=== PATIENT | female | born 1960 | race Asian ===

== ENCOUNTER 2017-10-20 17:15 | Emergency (ER) | payer MEDICAID ==
--- NOTE | 2017-10-20 17:43 | ED Physician Chart ---
ED Chief Complaint/HPI - Patient Information Date Seen:: 10/20/17 Time Seen:: 17:20 Chief Complaint:: Dizziness History of Present Illness:: onset x 3 days of dizziness; no report of trauma, H/As, S/T, neck pain, C/P, SOB , visual or gait changes, Abds. Pain, A/N/V/D/c, fever, chills, or urinary s/s Allergies:: Allergies Allergy/AdvReac Type Severity Reaction Status Date / Time No Known Allergies Allergy Verified 10/20/17 17:29 Historian:: Patient, Family Member Review:: Nurse's Note Reviewed <Harsha Cordova - Last Filed: 10/20/17 18:53> - Patient Information Allergies:: Allergies Allergy/AdvReac Type Severity Reaction Status Date / Time No Known Allergies Allergy Verified 10/20/17 17:29 Vitals:: Vital Signs - 8 hr 10/20/17 10/20/17 10/20/17 17:30 17:55 17:56 Temp 97.8 F HR 86 77 77 RR 16 BP 218/170 240/117 O2 Sat % 99 <Chidi Yee - Last Filed: 10/20/17 20:34> ED Review of Systems - Review of Systems General/Constitutional: No fever, No chills, No weight loss, No weakness, No diaphoresis, No edema, No loss of appetite Skin: No skin lesions, No rash, No bruising Head: No headache, No light-headedness Eyes: No loss of vision, No pain, No diplopia ENT: No earache, No nasal drainage, No sore throat, No tinnitus Neck: No neck pain, No swelling, No thyromegaly, No stiffness, No mass noted Cardio Vascular: No chest pain, No palpitations, No PND, No orthopnea, No edema Pulmonary: No SOB, No cough, No sputum, No wheezing GI: No nausea, No vomiting, No diarrhea, No pain, No melena, No hematochezia, No constipation, No hematemesis G/U: No dysuria, No frequency, No hematuria, No nacturia Office Communication Professor: No vaginal discharge, No abnormal vaginal bleed, No contraction Musculoskeletal: No bone or joint pain, No back pain, No muscle pain Endocrine: No polyuria, No polydipsia Psychiatric: No prior psych history, No depression, No anxiety, No suicidal ideation, No homicidal ideation, No auditory hallucination, No visual hallucination Hematopoietic: No bruising, No lymphadenopathy Allergic/Immuno: No urticaria, No angioedema Neurological: No syncope, No focal symptoms, No weakness, No paresthesia, No headache, No seizure, Dizziness, No confusion, Vertigo <TashaHarsha - Last Filed: 10/20/17 18:53> ED Past Medical History - Past Medical History Obtainable: Yes Past Medical History: HTN, DM, Dyslipidemia Family History: Diabetes Melitus, HTN Social History: Non Smoker, No Alcohol, No Drug Use, Surgical History: None Psychiatricy History: None Medication: Reviewed <Harsha Cordova - Last Filed: 10/20/17 18:53> Family Medical History - Family Member Mother History Unknown: Yes <Chidi Yee - Last Filed: 10/20/17 20:34> ED Physical Exam - Physical Examination General/Constitutional: Awake, Well-developed, well-nourished, Alert, No distress, GCS 15, Non-toxic appearing, Ambulatory Head: Atraumatic Eyes: Lids, conjuctiva normal, PERRL, EOMI Skin: Nl inspection, No rash, No skin lesions, No ecchymosis, Well hydrated, No lymphadenopathy ENMT: External ears, nose nl, TM canals nl, Nasal exam nl, Lips, teeth, gums nl , Oropharynx nl, Tonsils nl Neck: Nontender, Full ROM w/o pain, No JVD, No nuchal rigidity, No bruit, No mass, No stridor Respiratory: Nl effort/Exclusion, Clear to Auscultation, No Wheeze/Rhonchi/Rales Cardio Vascular: RRR, No murmur, gallop, rubs, NL S1 S2, Carotid/Femoral/Distal pulses equal bilaterally GI: No tenderness/rebounding/guarding, No organomegaly, No hernia, Normal BS's, Nondistended, No mass/bruits, No McBurney tenderness : No CVA tenderness Extremities: No tenderness or effusion, Full ROM, normal strength in all extremities, No edema, Normal digits & nails Neuro/Psych: Alert/oriented, DTR's symmetric, Normal sensory exam, Normal motor strength, Judgement/insight normal, Mood normal, Normal gait, No focal deficits Misc: Normal back, No paraspinal tenderness <Harsha Cordova - Last Filed: 10/20/17 18:53> ED Labs/Radiology/EKG Results - Lab Results Comments:: Na+: 135; Glucose: 176 - EKG Interpretations EKG Time:: 17:52 Rate & Rhythm: 77; NSR Comments:: non-specific st-t changes <Harsha Cordova - Last Filed: 10/20/17 18:53> - Lab Results Results: Laboratory Tests 10/20/17 10/20/17 10/20/17 18:00 18:00 18:00 WBC 8.3 RBC 5.22 H Hgb 15.1 Hct 45.3 MCV 86.8 MCH 28.9 MCHC Differential 33.3 RDW 12.8 Plt Count 310 MPV 8.1 Neutrophils % 53.7 Lymphocytes % 38.4 Monocytes % 6.1 Eosinophils % 1.3 Basophils % 0.5 PT 9.9 INR 0.95 Sodium 135 L Potassium 3.8 Chloride 102 Carbon Dioxide 25.8 Anion Gap 11.0 BUN 18 Creatinine 0.8 Est GFR ( Amer) > 60.0 Est GFR (Non-Af Amer) > 60.0 BUN/Creatinine Ratio 22.5 Glucose 276 H Calcium 9.6 Total Bilirubin 0.6 AST 13 ALT 9 Alkaline Phosphatase 91 Creatine Kinase 49 Troponin I B-Natriuretic Peptide Total Protein 7.7 Albumin 4.3 Globulin 3.4 Albumin/Globulin Ratio 1.3 Triglycerides 209 H Cholesterol 309 H LDL Cholesterol Direct 210 H HDL Cholesterol 57 Serum , Qual 10/20/17 10/20/17 10/20/17 18:00 18:00 18:00 WBC RBC Hgb Hct MCV MCH MCHC Differential RDW Plt Count MPV Neutrophils % Lymphocytes % Monocytes % Eosinophils % Basophils % PT INR Sodium Potassium Chloride Carbon Dioxide Anion Gap BUN Creatinine Est GFR ( Amer) Est GFR (Non-Af Amer) BUN/Creatinine Ratio Glucose Calcium Total Bilirubin AST ALT Alkaline Phosphatase Creatine Kinase Troponin I 0.01 B-Natriuretic Peptide 79.7 Total Protein Albumin Globulin Albumin/Globulin Ratio Triglycerides Cholesterol LDL Cholesterol Direct HDL Cholesterol Serum , Qual NEGATIVE <Chidi Yee - Last Filed: 10/20/17 20:34> ED Assessment - Assessment General Assessment: Patient went to Dr. Gan's office and her blood pressure was 230 systolic. So she was directed to come to the emergency room by Dr. Gan. Patient states she feels normal. She denies headache, dizziness, chest pain, shortness of breath. Past medical history: Patient has a history of hypertension and diabetes. She does not smoke cigarettes or drink alcohol. She's had one section. Patient's well-developed well-nourished in no acute distress. Eyes ears nose and throat: Normal except for poor dental hygiene with 3 out of 4 gum retraction. Neck supple. Chest clear symmetrical breath sounds Heart regular rhythm no murmur or extra sound. Abdomen bowel sounds present; abdomen is soft, nontender, no organomegaly. Extremities no edema. Neurological patient normally alert; no focal neurological deficit. Assessment : Patient appears to have asymptomatic hypertension. I talked to Dr. Verdugo and he felt the patient should be discharged with a prescription for Catapres to take 0.1 mg when necessary for a systolic blood pressure of 160 or above. Patient also to be prescribed lisinopril 40 mg a day #100 to take one daily. This is the high blood pressure medicine that the patient is currently on and she ran out of. Diagnosis is asymptomatic hypertension. <Chidi Yee - Last Filed: 10/20/17 20:34> ED Septic Shock - . Is Septic Shock (SBP<90, OR Lactate>4 mmol\L) present?: No <Harsha Cordova - Last Filed: 10/20/17 18:53> - <6hrs of presentation: Vital Signs: Vital Signs - 8 hr 10/20/17 10/20/17 10/20/17 17:30 17:55 17:56 Temp 97.8 F HR 86 77 77 RR 16 BP 218/170 240/117 O2 Sat % 99 <Chidi Yee - Last Filed: 10/20/17 20:34> ED Reassessment (Disposition) - Reassessment Reassessment Condition:: Improved - Diagnosis Diagnosis:: Hypertension; Hyponatremia; Hyperglycemia; Uncontrolled Hypertension; DM <Harsha Cordova - Last Filed: 10/20/17 18:53>
[2017-10-20] MEDS ORDERED: NITROGLYCERIN OINT 2% 1 INCH PACKET TP STA (17:46)
[2017-10-20] MEDS ORDERED: NITROGLYCERIN OINT 2% 1 INCH PACKET TP ONE (17:53)
[2017-10-20 18:13] LABS: % BASOPHILS 0.5 % (0.0-2.0); % EOSINOPHILS 1.3 % (0.0-5.0); % LYMPHOCYTES 38.4 % (20.0-50.0); % MONOCYTES 6.1 % (2.0-10.0); % NEUTROPHILS 53.7 % (40.0-80.0); EOSINOPHILE ABSOLUTE 0.1 Th/cmm (0.1-0.4); HEMATOCRIT 45.3 % (41.0-60); HEMOGLOBIN 15.1 gm/dL (12-16); LYMPHOCYTE ABSOLUTE 3.2 Th/cmm (1.5-3.0); MEAN CELL VOLUME 86.8 fl (81-100); MEAN CORPUSCULAR HEMOGLOBIN 28.9 pg (27.0-31.0); MEAN CORPUSCULAR HGB CONC 33.3 pg (28.0-36.0); MEAN PLATELET VOLUME 8.1 fl; MONOCYTE ABSOLUTE 0.5 Th/cmm (0.3-1.0); NEUTROPHILE ABSOLUTE 4.5 Th/cmm (1.8-8.0); PLATELET COUNT 310 Th/cmm (150-400); RED BLOOD COUNT 5.22 Mil/cmm (3.80-5.10); RED CELL DISTRIBUTION WIDTH 12.8 % (11.5-20.0); WHITE BLOOD COUNT 8.3 Th/cmm (4.8-10.8)
[2017-10-20 18:25] LABS: INR 0.95 (0.5-1.4); PROTHROMBIN TIME (TEST) 9.9 SECONDS (9.5-11.5)
[2017-10-20 18:31] LABS: ALB/GLOB RATIO 1.3 (1.0-1.8); ALBUMIN 4.3 gm/dL (3.7-5.3); ALKALINE PHOSPHATASE 91 U/L (34-104); BILIRUBIN,TOTAL 0.6 mg/dL (0.3-1.0); BUN - UREA NITROGEN 18 mg/dL (7-25); CALCIUM SERUM 9.6 mg/dL (8.6-10.3); CARBON DIOXIDE 25.8 mEq/L (21.0-31.0); CHLORIDE 102 mEq/L (98-107); CHOLESTEROL 309 mg/dL (<200); CREATININE - SERUM 0.8 mg/dL (0.6-1.2); CREATININE KINASE 49 U/L (30-223); GFR AFRICAN-AMERICAN > 60.0 ml/min (>90); GFR NON AFRICAN-AMERICAN > 60.0 ml/min; GLUCOSE 276 mg/dL (70-105); HDL -HIGH DENSITY LIPOPROTEIN 57 mg/dL (23-92); POTASSIUM SERUM 3.8 mEq/L (3.5-5.1); SGOT 13 U/L (13-39); SGPT/ALT 9 U/L (7-52); SODIUM SERUM 135 mEq/L (136-145); TOTAL PROTEIN,SERUM 7.7 gm/dL (6.0-8.3); TRIGLYCERIDES 209 mg/dL (<150)
[2017-10-20 21:34] LABS: A1C % 11.2 % (4.0-6.0)
--- NOTE | 2017-10-21 08:12 | Diagnostic Imaging Report ---
Portable chest x-ray HISTORY: Hypertension. The heart size is normal. No focal pulmonary processes. No hilar or mediastinal abnormalities. IMPRESSION: No acute abnormalities
== END 2017-10-20 20:55 | disposition home or self-care (01) ==
LOC: ER 17:15
DX: I10 Essential (primary) hypertension (principal); E11.65 Type 2 diabetes mellitus with hyperglycemia; E87.1 Hypo-osmolality and hyponatremia; E78.5 Hyperlipidemia, unspecified; Z98.890 Other specified postprocedural states
CPT/HCPCS: 36415-UA; 71045-TC; 80053-TC; 80061-TC; 82550-TC; 83036-90; 83735-TC; 83880-TC; 84484-TC; 84703-TC; 85025-TC; 85610-TC; 93005; 94760; Z7610